=== PATIENT | male | born 1965 | race Caucasian/White ===

== ENCOUNTER 2018-01-02 07:04 | Emergency (ER) | payer OTHER ==
[2018-01-02 07:16] VITALS: BP 160/93
[2018-01-02] MEDS ORDERED: HYDROcodone/ACETAMIN 5-325 MG* 1 TAB PO ONE (07:34)
--- NOTE | 2018-01-02 07:50 | UC ---
Skin Complaint HPI - HPI Summary HPI Summary: c/o very painful rash for the past 5 days started on left side of abdomen. Denies fever, contact with plants/poison oak/ping or any cold like symptoms preceding rash. States he had chickenpox as a child - History of Current Complaint Chief Complaint: UCRash Time Seen by Provider: 01/02/18 07:34 Stated Complaint: ABDOMINAL PAIN, AND RASH Hx Obtained From: Patient Onset/Duration: Sudden Onset, Lasting Days Timing: Constant Onset Severity: Moderate Current Severity: Severe Pain Intensity: 7 Location: Discrete, Other - torso Aggravating Factor(s): Nothing Alleviating Factor(s): Nothing Associated Signs & Symptoms: Positive: Negative - Allergy/Home Medications Allergies/Adverse Reactions: Allergies Allergy/AdvReac Type Severity Reaction Status Date / Time No Known Allergies Allergy Verified 01/02/18 07:16 Home Medications: Home Medications Acetaminophen TAB* [Tylenol TAB*] 2 tab PO TID PRN 01/02/18 [History Confirmed 01/02/18] Review of Systems Constitutional: Negative All Other Systems Reviewed And Are Negative: Yes PMH/Surg Hx/FS Hx/Imm Hx Previously Healthy: Yes - Surgical History Surgical History: None - Social History Alcohol Use: Weekly Substance Use Type: None Smoking Status (MU): Never Smoked Tobacco - Immunization History Most Recent Tetanus Shot: UNK Physical Exam Triage Information Reviewed: Yes Appearance: Well-Appearing, Well-Nourished, Pain Distress Vital Signs: Initial Vital Signs Temp 97.8 F 01/02/18 07:10 Pulse 64 01/02/18 07:10 Resp 18 01/02/18 07:10 BP 160/93 01/02/18 07:10 Pulse Ox 98 01/02/18 07:10 Vital Signs Reviewed: Yes Eyes: Positive: Conjunctiva Clear Respiratory: Positive: No respiratory distress Cardiovascular: Positive: Pulses Normal, Brisk Capillary Refill Skin Exam: Other - papulo vesicular rash in clusters following dermatomal distribution of L1 on left torso Course/Dx - Course Course Of Treatment: start valtrex, norco and pamelor at night. Cover lesions and wash hands to avoid contagion. Apply lidoderm daily. F/u in 2 weeks with PCP - Diagnoses Provider Diagnoses: Herpes zoster. Elevated BP without history of HTN, patient is in pain Discharge - Sign-Out/Discharge Documenting (check all that apply): Discharge/Admit/Transfer - Discharge Plan Condition: Good Disposition: HOME Prescriptions: HYDROcodone/ACETAMIN 5-325 MG* [[place] 5-325 TAB*] 1 - 2 tab PO Q6H PRN #30 tab MDD 8 PRN Reason: Pain Lidocaine PATCH 5%* [Lidoderm 5% Patch*] 1 patch TRANSDERM DAILY #30 patch Nortriptyline CAP* [Pamelor CAP*] 25 mg PO BEDTIME #30 cap ValACYclovir (*) [Valtrex 1 GM(*)] 1 gm PO TID 10 Days #30 tab Patient Education Materials: Shingles (ED), Valacyclovir (By mouth), Hydrocodone/Acetaminophen (By mouth), Nortriptyline (By mouth) Referrals: Micaela Balbuena MD [Primary Care Provider] - - Billing Disposition and Condition Condition: GOOD Disposition: HOME
== END 2018-01-02 07:46 | disposition home or self-care (01) ==
LOC: UCEAST 07:04
DX: B02.9 Zoster without complications (principal); R03.0 Elevated blood-pressure reading, without diagnosis of hypertension
CPT/HCPCS: 99212; G0463

== ENCOUNTER 2018-01-09 08:00 | Emergency (ER) | payer OTHER ==
[2018-01-09 08:11] VITALS: BP 114/75
--- NOTE | 2018-01-09 08:23 | UC ---
Skin Complaint HPI - HPI Summary HPI Summary: Recently diagnosed shingles is running out of hydrocodone. States pain is waxing and waning has not been using his Lidoderm patches - History of Current Complaint Chief Complaint: UCSkin Time Seen by Provider: 01/09/18 08:17 Stated Complaint: SKIN COMPLAINT Hx Obtained From: Patient Onset/Duration: Sudden Onset, Still Present Pain Intensity: 5 Pain Scale Used: 0-10 Numeric Location: Discrete Character: Pain Aggravating Factor(s): Nothing Alleviating Factor(s): Other - Hydrocodone did seem to help does not need to take it every day Associated Signs & Symptoms: Positive: Rash - Shingles around his left mid abdomen - Allergy/Home Medications Allergies/Adverse Reactions: Allergies Allergy/AdvReac Type Severity Reaction Status Date / Time No Known Allergies Allergy Verified 01/02/18 07:16 Review of Systems Constitutional: Negative Skin: Rash Eyes: Negative ENT: Negative Respiratory: Negative Cardiovascular: Negative Gastrointestinal: Negative Genitourinary: Negative Motor: Negative Neurovascular: Negative Musculoskeletal: Negative Neurological: Negative Psychological: Negative Is Patient Immunocompromised?: No All Other Systems Reviewed And Are Negative: Yes PMH/Surg Hx/FS Hx/Imm Hx Previously Healthy: Yes - Surgical History Surgical History: None - Family History Known Family History: Positive: None - Social History Occupation: Employed Full-time Lives: With Family Alcohol Use: Weekly Substance Use Type: None Smoking Status (MU): Never Smoked Tobacco - Immunization History Most Recent Tetanus Shot: UNK Physical Exam Triage Information Reviewed: Yes Appearance: Well-Appearing, Well-Nourished, Pain Distress Vital Signs: Initial Vital Signs Temp 97.6 F 01/09/18 08:05 Pulse 72 01/09/18 08:05 Resp 16 01/09/18 08:05 BP 114/75 01/09/18 08:05 Pulse Ox 99 01/09/18 08:05 Vital Signs Reviewed: Yes Eye Exam: Normal Eyes: Positive: Conjunctiva Clear ENT Exam: Normal ENT: Positive: Normal ENT inspection, Hearing grossly normal. Negative: Muffled voice, Hoarse voice, Dental tenderness Dental Exam: Normal Neck exam: Normal Neck: Positive: Supple, Nontender Respiratory Exam: Normal Respiratory: Positive: Chest non-tender, No respiratory distress, No accessory muscle use Cardiovascular Exam: Normal Cardiovascular: Positive: RRR, Brisk Capillary Refill Musculoskeletal Exam: Normal Musculoskeletal: Positive: Strength Intact, ROM Intact, No Edema Neurological Exam: Normal Neurological: Positive: Alert, Muscle Tone Normal Psychological Exam: Normal Skin Exam: Normal Course/Dx - Course Course Of Treatment: Educated patient to the likely course of shingles and then her neuropathic pain may last for a while. Encouraged to use Lidoderm patches hydrocodone refilled. Follow with PCP when necessary - Diagnoses Provider Diagnoses: shingles Discharge - Sign-Out/Discharge Documenting (check all that apply): Discharge/Admit/Transfer - Discharge Plan Condition: Stable Disposition: HOME Prescriptions: Hydrocodone/Acetaminophen [Hydrocodone-Acetamin 5-325 mg] 1 - 2 each PO Q6H PRN #20 tablet MDD 6 PRN Reason: Pain Patient Education Materials: Shingles (ED) Referrals: Micaela Balbuena MD [Primary Care Provider] - 1 Week - Billing Disposition and Condition Condition: STABLE Disposition: HOME
== END 2018-01-09 08:29 | disposition home or self-care (01) ==
LOC: UCEAST 08:00
DX: B02.9 Zoster without complications (principal)
CPT/HCPCS: 99212; G0463

== ENCOUNTER 2018-05-20 17:59 | Emergency (ER) | payer OTHER ==
[2018-05-20] MEDS ORDERED: Tetan/Diph/Pertus SYR(Tdap)* 0.5 ML SYR(BOOSTRIX) use SYR IM ONE (19:06)
[2018-05-20] MEDS ORDERED: Lidocaine 1% INJ* 10 MG/ML 30 ML SDV ONE (19:11)
[2018-05-20] MEDS ORDERED: Sulfamethox/Trimethoprim DS 800/160* TAB PO ONE (20:44)
--- NOTE | 2018-05-20 20:44 | ED ---
Laceration/Wound HPI - HPI Summary HPI Summary: Complains of laceration to left medial knee from chainsaw today. Denies loss of sensation or function distally. Patient ambulatory. No anti-coag. Denies any other pain, injury or symptoms. Bleeding controlled. - History of Current Complaint Stated Complaint: LEFT LEG CUT WITH CHAIN SAW Time Seen by Provider: 05/20/18 19:04 Hx Obtained From: Patient Mechanism of Injury: Sharp/Blunt Trauma Onset/Duration: Sudden Onset Aggravating: Nothing Alleviating: Nothing Onset Severity: Moderate Current Severity: Moderate Pain Intensity: 4 Pain Scale Used: 0-10 Numeric Associated Signs & Symptoms: Negative - Allergy/Home Medications Allergies/Adverse Reactions: Allergies Allergy/AdvReac Type Severity Reaction Status Date / Time No Known Allergies Allergy Verified 05/20/18 18:14 PMH/Surg Hx/FS Hx/Imm Hx Endocrine/Hematology History: Denies: Hx Anticoagulant Therapy, Hx Diabetes, Hx Thyroid Disease Cardiovascular History: Denies: Hx Cardiac Arrest, Hx Hypertension Respiratory History: Denies: Hx Asthma, Hx Chronic Obstructive Pulmonary Disease (COPD) GI History: Denies: Hx Ulcer History: Denies: Hx Dialysis Neurological History: Denies: Hx CVA, Hx Dementia - Immunization History Immunizations Up to Date: Unable to Obtain/Confirm Infectious Disease History: No Infectious Disease History: Denies: Hx Hepatitis, Hx Human Immunodeficiency Virus (HIV), Traveled Outside the [place] in Last 30 Days - Family History Known Family History: Positive: None - Social History Alcohol Use: Weekly Substance Use Type: Reports: None Smoking Status (MU): Never Smoked Tobacco Review of Systems Constitutional: Negative Eyes: Negative ENT: Negative Cardiovascular: Negative Respiratory: Negative Gastrointestinal: Negative Genitourinary: Negative Musculoskeletal: Negative Skin: Other Neurological: Negative Psychological: Normal All Other Systems Reviewed And Are Negative: Yes Physical Exam - Summary Physical Exam Summary: Laceration to left medial knee. Dorsiflexion and plantar flexion against resistance intact. Full range of motion of left knee. No apparent tendon or joint involvement. PMS intact distally. Triage Information Reviewed: Yes Vital Signs On Initial Exam: Initial Vitals Temp Pulse Resp BP Pulse Ox 98.1 F 76 18 125/76 97 05/20/18 18:09 05/20/18 18:09 05/20/18 18:09 05/20/18 18:09 05/20/18 18:09 Vital Signs Reviewed: Yes Appearance: Positive: Well-Appearing Skin: Positive: Warm Head/Face: Positive: Normal Head/Face Inspection Eyes: Positive: Normal Neck: Positive: Supple Respiratory/Lung Sounds: Positive: Clear to Auscultation Cardiovascular: Positive: Normal Abdomen Description: Positive: Nontender Musculoskeletal: Positive: Normal Neurological: Positive: Normal Psychiatric: Positive: Normal AVPU Assessment: Alert - Link Coma Scale Best Eye Response: 4 - Spontaneous Best Motor Response: 6 - Obeys Commands Best Verbal Response: 5 - Oriented Coma Scale Total: 15 Procedures - Laceration/Wound Repair 1 Location: lower extremity Description: Linear Anesthesia: Local, 2.0% Length, Depth and Shape: 6cm x 1cm Betadine Prep?: Yes Irrigated w/ Saline (ccs): 50 - chlorhexadine plus saline Laceration/Wound Explored: clean Debridement: minimal Number of Sutures: 8 - 4.0 ethilon Layer Closure?: No Sterile Dressing Applied?: No Diagnostics - Vital Signs Vital Signs Temp Pulse Resp BP Pulse Ox 05/20/18 18:09 98.1 F 76 18 125/76 97 - Laboratory Lab Statement: Any lab studies that have been ordered have been reviewed, and results considered in the medical decision making process. Laceration Repair Course/Dx - Course Course Of Treatment: Complains of laceration to left medial knee from chainsaw today. Denies loss of sensation or function distally. Patient ambulatory. No anti-coag. Denies any other pain, injury or symptoms. Bleeding controlled. Physical exam:Laceration to left medial knee. Dorsiflexion and plantar flexion against resistance intact. Full range of motion of left knee. No apparent tendon or joint involvement. PMS intact distally. Wound cleaned, sutured. Rx for Bactrim. - Clinical Impression Provider Diagnoses: Laceration Discharge - Sign-Out/Discharge Documenting (check all that apply): Patient Departure - Discharge Plan Condition: Stable Disposition: HOME Prescriptions: Sulfamethox/Trimethoprim DS* [Bactrim DS 800/160 TAB*] 1 tab PO BID 10 Days #20 tab Patient Education Materials: Care For Your Stitches (ED), Laceration (ED) Referrals: Micaela Balbuena MD [Primary Care Provider] - Additional Instructions: Sutures out in 10 days. Limit heavy exercise for 1 week. Wash wound with warm running water and soap. Do not submerge. Take antibiotics as directed. Return to the ED for any new or worsening symptoms - Billing Disposition and Condition Condition: STABLE Disposition: Home
[2018-05-20 21:22] VITALS: BP 118/74
== END 2018-05-20 21:21 | disposition home or self-care (01) ==
LOC: ED 17:59
DX: S81.012A Laceration without foreign body, left knee, initial encounter (principal); W29.3XXA Contact with powered garden and outdoor hand tools and machinery, initial encounter; Y92.9 Unspecified place or not applicable
CPT/HCPCS: 12002; 90471; 90715; 99282; A9270-GY